=== PATIENT | female | born 1985 | race Two or more races ===

== ENCOUNTER 2021-01-21 13:32 | Emergency (ER) | payer OTHER ==
[2021-01-21 13:44] VITALS: BP 121/70; PULSE 71; TEMP 98.2; BMI 28.8
[2021-01-21 14:28] LABS: HEMATOCRIT 41.2 % (32.4-45.2)
[2021-01-21 14:35] LABS: ALBUMIN 3.9 g/dl (3.4-5.0); BILIRUBIN,TOTAL 0.7 mg/dl (0.2-1); CALCIUM 8.9 mg/dl (8.5-10); CREATININE 0.7 mg/dl (0.55-1.3); TOT PROT 7.1 g/dl (6.4-8.2)
[2021-01-21 14:42] LABS: EPITHELIAL CELLS FEW /hpf
[2021-01-21 14:54] LABS: BASO % 1.7 % (0-2.0); EOS % 2.2 % (0-4.5); HEMOGLOBIN 13.8 GM/dl (10.7-15.3); LYMPH % 29.8 % (8-40); MCH 29.5 pg (25.7-33.7); MCHC 33.4 g/dl (32.0-36.0); MEAN CELL VOLUME 88.4 fl (80-96); MEAN PLT VOLUME 9.6 fl (7.5-11.1); MONO % 11.9 % (3.8-10.2); NEUT % 54.4 % (42.8-82.8); PLATELET COUNT 391 10^3/uL (134-434); RBC 4.66 M/mm3 (3.60-5.2); RDW 12.8 % (11.6-15.6); WHITE BLOOD COUNT 5.5 K/mm3 (4.0-10.8)
[2021-01-21] MEDS ORDERED: KETOROLAC TROMETHAMINE 60 MG/2 ML VIAL IM ONE (15:34)
[2021-01-21] MEDS ORDERED: KETOROLAC TROMETHAMINE 60 MG/2 ML VIAL ONE (15:37)
== END 2021-01-21 15:53 | disposition home or self-care (01) ==
LOC: FER 13:32
PROC: 3E023GC Introduction of Other Therapeutic Substance into Muscle, Percutaneous Approach (ICD-10-PCS; principal; 2021-01-21)
DX: R51.9 Headache, unspecified (principal)
CPT/HCPCS: 36415; 70450-TC; 80053; 81003; 81015; 84703; 85025; 99284-25

== ENCOUNTER 2021-05-18 12:55 | Emergency (ER) | payer OTHER ==
[2021-05-18 13:17] VITALS: BP 115/83; PULSE 92; TEMP 98; BMI 29.7
[2021-05-18 13:27] LABS: HCG,QUALITATIVE URINE Negative
[2021-05-18 13:38] LABS: EPITHELIAL CELLS MODERATE /hpf
== END 2021-05-18 16:15 | disposition home or self-care (01) ==
LOC: FER 12:55
PROC: 3E0233Z Introduction of Anti-inflammatory into Muscle, Percutaneous Approach (ICD-10-PCS; principal; 2021-05-18)
DX: R10.2 Pelvic and perineal pain (principal); N83.202 Unspecified ovarian cyst, left side
CPT/HCPCS: 76775-TC; 76830-TC; 81003; 81015; 84703; 87086; 99285-25

== ENCOUNTER 2022-01-16 15:12 | Emergency (ER) | payer OTHER ==
[2022-01-16 15:20] VITALS: BP 124/77; PULSE 82; RESP 16; TEMP 98.1; BMI 30.9
[2022-01-16] MEDS ORDERED: SODIUM CHLORIDE 1,000 ML IV STA (15:55)
[2022-01-16] MEDS ORDERED: ONDANSETRON 4 MG/2 ML VIAL IVPB ONE (15:55)
[2022-01-16] MEDS ORDERED: ONDANSETRON 4 MG/2 ML VIAL ONE ×2 (15:57→16:08)
[2022-01-16 16:23] LABS: HEMATOCRIT 37.9 % (32.4-45.2); HEMOGLOBIN 12.9 G/dL (10.7-15.3); MCH 30.3 pg (25.7-33.7); MEAN CELL VOLUME 88.9 fl (80-96); MEAN PLT VOLUME 8.6 fl (7.5-11.1); PLATELET COUNT 338.6 10^3/uL (134-434); RBC 4.26 10^6/uL (3.60-5.2); WHITE BLOOD COUNT 5.1 10^3/uL (4.0-10.8)
[2022-01-16 16:25] LABS: EPITHELIAL CELLS MODERATE /hpf
[2022-01-16] MEDS ORDERED: FAMOTIDINE 20 MG/50 ML IVPB 20 MG/50 ML MG IVPB ONE ×2 (16:38→16:46)
[2022-01-16 16:39] LABS: ALBUMIN 3.5 g/dl (3.4-5.0); BILIRUBIN,TOTAL 0.3 mg/dl (0.2-1); CALCIUM 8.7 mg/dl (8.5-10); CREATININE 0.7 mg/dl (0.55-1.3); TOT PROT 6.8 g/dl (6.4-8.2)
== END 2022-01-16 17:46 | disposition home or self-care (01) ==
LOC: FER 15:12
PROC: 3E033GC Introduction of Other Therapeutic Substance into Peripheral Vein, Percutaneous Approach (ICD-10-PCS; principal; 2022-01-16)
PROC: 3E033GC Introduction of Other Therapeutic Substance into Peripheral Vein, Percutaneous Approach (ICD-10-PCS; 2022-01-16)
PROC: 3E0337Z Introduction of Electrolytic and Water Balance Substance into Peripheral Vein, Percutaneous Approach (ICD-10-PCS; 2022-01-16)
DX: A09 Infectious gastroenteritis and colitis, unspecified (principal)
CPT/HCPCS: 36415; 80053; 81003; 81015; 81025; 85027; 99284-25

== ENCOUNTER 2022-10-07 00:39 | Emergency (ER) | payer OTHER ==
[2022-10-07 00:43] VITALS: BP 108/58; PULSE 67; RESP 18; TEMP 98.6; BMI 30.9
[2022-10-07] MEDS ORDERED: KETOROLAC TROMETHAMINE 60 MG/2 ML VIAL ONE (01:04)
[2022-10-07] MEDS ORDERED: KETOROLAC TROMETHAMINE 60 MG/2 ML VIAL IM ONE (01:09)
== END 2022-10-07 01:27 | disposition home or self-care (01) ==
LOC: FER 00:39
PROC: 3E0233Z Introduction of Anti-inflammatory into Muscle, Percutaneous Approach (ICD-10-PCS; principal; 2022-10-07)
DX: R07.9 Chest pain, unspecified (principal)
CPT/HCPCS: 93005; 99284-25

== ENCOUNTER 2023-11-09 21:33 | Emergency (ER) | payer OTHER ==
[2023-11-09 21:55] VITALS: BP 117/75; PULSE 80; RESP 16; TEMP 98; BMI 31.5
[2023-11-09] MEDS ORDERED: IBUPROFEN 600 MG TABLET (FP) PO ONE (21:55)
[2023-11-09] MEDS ORDERED: CEPHALEXIN MONOHYDRATE 500 MG CAPSULE (UD) PO ONE (21:55)
[2023-11-09] MEDS ORDERED: PHENAZOPYRIDINE HCL 100 MG TABLET (FP) PO ONE (22:14)
[2023-11-09] MEDS ORDERED: AZITHROMYCIN 500 MG TABLET ONE (23:01)
[2023-11-09] MEDS ORDERED: KETOROLAC TROMETHAMINE 60 MG/2 ML VIAL ONE (23:01)
[2023-11-09] MEDS: KETOROLAC TROMETHAMINE 60 MG/2 ML VIAL IM ONE (23:19)
[2023-11-09] MEDS: AZITHROMYCIN 500 MG TABLET PO ONE (23:19)
== END 2023-11-09 23:22 | disposition home or self-care (01) ==
LOC: FER 21:33
PROC: 3E02329 Introduction of Other Anti-infective into Muscle, Percutaneous Approach (ICD-10-PCS; principal; 2023-11-09)
PROC: 3E0233Z Introduction of Anti-inflammatory into Muscle, Percutaneous Approach (ICD-10-PCS; 2023-11-09)
DX: A64 Unspecified sexually transmitted disease (principal); R35.0 Frequency of micturition; R30.0 Dysuria; R10.30 Lower abdominal pain, unspecified
CPT/HCPCS: 36415; 81003; 81015; 81025; 87086; 87491; 87591; 99284-25